=== PATIENT | male | born 1975 | race African-American/Black ===

== ENCOUNTER 2017-10-07 00:55 | Emergency (ER) | payer SELFPAY ==
[2017-10-07 01:13] VITALS: BMI 27.0
--- NOTE | 2017-10-07 01:52 | PDOC ---
History of Present Illness - General Chief Complaint: Edema Stated Complaint: FINGER INJURY Time Seen by Provider: 10/07/17 01:20 Past History - Past Medical History Allergies/Adverse Reactions: Allergies Allergy/AdvReac Type Severity Reaction Status Date / Time shrimp Allergy Mild Verified 10/07/17 01:58 Home Medications: Ambulatory Orders NK [No Known Home Medication] 10/07/17 COPD: No - Suicide/Smoking/Psychosocial Hx Smoking History: Never smoked Review of Systems - Review of Systems Able to Perform ROS?: Yes Is the patient limited Kosovan proficient: Yes Constitutional: No: Symptoms Reported, See HPI, Chills, Diaphoresis, Fever, Loss of Appetite, Malaise, Night Sweats, Weakness, Weight Stable, Unintentional Wgt. Loss, Unexplained wgt Loss, Other HEENTM: No: Symptoms Reported, See HPI, Eye Pain, Blurred Vision, Tearing, Recent change in vision, Double Vision, Cataracts, Ear Pain, Ocular Prothesis, Ear Discharge, Nose Pain, Nose Congestion, Tinnitus, Nose Bleeding, Hearing Loss , Throat Pain, Throat Swelling, Mouth Pain, Dental Problems, Difficulty Swallowing, Mouth Swelling, Other Respiratory: No: Symptoms reported, See HPI, Cough, Orthopnea, Shortness of Breath, SOB with Exertion, SOB at Rest, Stridor, Wheezing, Productive cough, Hemoptysis, Other Cardiac (ROS): No: Symptoms Reported, See HPI, Chest Pain, Edema, Irregular Heart Rate, Lightheadedness, Palpitations, Syncope, Chest Tightness, Other ABD/GI: No: Symptoms Reported, See HPI, Abdominal Distended, Abd. Pain w/ defecation, Blood Streaked Bowels, Constipated, Diarrhea, Difficulty Swallowing , Nausea, Poor Appetite, Poor Fluid Intake, Rectal Bleeding, Vomiting, Indigestion, Abdominal cramping, Tarry Stools, Other Musculoskeletal: No: Symptoms Reported, See HPI, Back Pain, Gout, Joint Pain, Joint Swelling, Muscle Pain, Muscle Weakness, Neck Pain, Joint Stiffness, Other Integumentary: No: Symptoms Reported, See HPI, Bruising, Change in Color, Change in Hair/Nails, Dryness, Erythema, Flushing, Lesions, Lumps, Pallor, Pruritus, Rash, Sweating, Other *Physical Exam - Vital Signs Last Vital Signs Temp Pulse Resp BP Pulse Ox 98 F 81 18 126/54 99 10/07/17 01:11 10/07/17 01:11 10/07/17 01:11 10/07/17 01:11 10/07/17 01:11 - Physical Exam General Appearance: Yes: Nourished, Appropriately Dressed HEENT: positive: EOMI, LESLEE Neck: positive: Tender, Normal Thyroid Respiratory/Chest: positive: Lungs Clear, Normal Breath Sounds. negative: Chest Tender Cardiovascular: positive: Regular Rhythm, Regular Rate, S1, S2 Gastrointestinal/Abdominal: positive: Normal Bowel Sounds, Flat, Soft Rectal Exam: positive: normal exam Integumentary: positive: Normal Color, Dry, Warm Neurologic: positive: bell spinner sousaphones II-XII NML intact, Fully Oriented, Alert, Normal Response, Motor Strength 5/5 Procedures - Incision and Drainage I&D Site: Left: Paronychia Betadine cleansed: Yes Anesthesia: 2% Lidocaine Volume(ml): 3 Blade Size: sterile scissors ED Treatment Course - LABORATORY CBC & Chemistry Diagram: 10/07/17 02:36 Medical Decision Making - Medical Decision Making 10/08/17 06:10 Pt comes with paronychia. I+D done. Wound culture sent. Pt placed on abx and home with augmentin. *DC/Admit/Observation/Transfer Diagnosis at time of Disposition: Paronychia of finger - Discharge Dispostion Disposition: HOME Condition at time of disposition: Improved Admit: No - Referrals Referrals: Prasad Carvajal MD [Staff Physician] - - Patient Instructions Printed Discharge Instructions: DI for Paronychia, DI for Wound Infection - Post Discharge Activity
[2017-10-07] MEDS ORDERED: AMPICILLIN NA/SULBACTAM NA 1.5 GM in SODIUM CHLORIDE 100 ML IVPB ONE (01:53)
[2017-10-07] MEDS ORDERED: LIDOCAINE HCL 2% (50ML VIAL) INF ONE (01:56)
[2017-10-07] MEDS ORDERED: LIDOCAINE HCL 2% (20ML MULTI-DOSE VIAL) NR ONE (02:14)
[2017-10-07 02:57] LABS: BASOPHIL 0.4 % (0-2.0); EOSINOPHIL 1.9 % (0-4.5); MCH 29.8 pg (25.7-33.7); MCHC 33.3 g/dl (32.0-35.9); MEAN CELL VOLUME 89.4 fl (80-96); MEAN PLT VOLUME 9.1 fl (7.5-11.1); NEUTROPHILS 63.1 % (42.8-82.8); PLATELET COUNT 182 K/MM3 (134-434); RDW 13.7 % (11.9-15.9); WHITE BLOOD COUNT 9.5 K/mm3 (4.0-10.0)
[2017-10-07 03:42] VITALS: BP 126/52; PULSE 80; TEMP 98
--- NOTE | 2017-10-10 13:40 | PDOC ---
Patient Follow-up (Call Back) - Post ED Follow - Up Condition at time of discharge: Improved Disposition at time of original discharge: HOME Reason for Call Back: Abnwl. Microbiology - Disposition Additional Instructions/Notes: Pt called and left message about findings of wound sensitivities of staph aureus and streptococcus viridans Pt was not on any antiboitics Tried to speak with pt to see if any improvement or if needing coverage. LM to call back
--- NOTE | 2017-10-11 07:31 | PDOC ---
Patient Follow-up (Call Back) - Post ED Follow - Up Condition at time of discharge: Improved Disposition at time of original discharge: HOME Reason for Call Back: Abnwl. Microbiology (Preliminary shows staph aureus and streptococcal viridans. Third organism pending organism #2. Called patient at [phone] and left message to call back to see how he is feeling. Patient currently on no antibiotics. Will await final. And may contact second contact number which is his mother's.)
--- NOTE | 2017-10-12 07:09 | PDOC ---
Patient Follow-up (Call Back) - Post ED Follow - Up Condition at time of discharge: Improved Disposition at time of original discharge: HOME Reason for Call Back: Abnwl. Microbiology (As per chart, pt on augmentin which is sensitive to staph aureus on cx No need for estuardo back)
== END 2017-10-07 04:01 | disposition home or self-care (01) ==
LOC: JER 00:55
PROC: 0J9K0ZZ Drainage of Left Hand Subcutaneous Tissue and Fascia, Open Approach (ICD-10-PCS; principal; 2017-10-07)
DX: L03.011 Cellulitis of right finger (principal)
CPT/HCPCS: 36415; 85025; 87070; 87076; 87077; 87186; 87205; 99282-25